=== PATIENT | female | born 1930 | race Caucasian/White ===

== ENCOUNTER 2017-01-05 14:37 | Inpatient (IN) | payer OTHER ==
[~2017-01-05] VITALS: Ht 152.4 cm; Wt 43.3 kg
--- NOTE | ~2017-01-05 | HC ---
[facility] [place] [address] CONSULTATION Name: CLINTON GUTIERREZ Room #: 359-P [facility] IN .R.#: [id number] Admission: 01/05/17 Attend Phys: Danielle Claros MD Discharge: Date of : 32 Report #: [id number] THIS REPORT FOR: //name// CC: Danielle Acosta PRIMARY PHYSICIAN: Edin Tapia MD REFERRAL PHYSICIAN: Dr. Claros. REASON FOR REFERRAL: Pneumonia. HISTORY OF PRESENT ILLNESS: The patient is an 86-year-old white female who presents to the emergency room with dyspnea and weakness. Chest x-ray revealed infiltrates. A pulmonary consultation was requested. The patient is followed longitudinally by Dr. Rod Acosta for COPD and past history of lung cancer. The patient was in her usual state of health until yesterday evening, she took a shower. She awoke early this morning with increasing dyspnea and weakness. Otherwise, no recent febrile illness, night sweats or chills, chest pain, or productive cough. PAST MEDICAL HISTORY: Notable for COPD, severity undefined; past history of lung cancer, undergoing right lower lobectomy along with left lower lobectomy; hypertension, dyslipidemia, gastroesophageal reflux disease, peripheral artery disease with multiple stents placement in the past. PAST SURGICAL HISTORY: As mentioned above including bilateral cataract surgery and total abdominal hysterectomy. ALLERGIES: To PENICILLIN, which causes hives. HOME MEDICATIONS: Include hydrochlorothiazide, Lasix, Plavix, Klor-con, nebulized DuoNeb, Ambien, vitamin D3, diltiazem, Advair, Prilosec, Fosamax, and multivitamins. FAMILY HISTORY: Noncontributory. SOCIAL HISTORY: She drinks wine socially. Otherwise, she has smoked in the past, quit more than 20 years ago after smoking 2 packs a day for 30 years. She is and lives with her . REVIEW OF SYSTEMS: As mentioned above, otherwise 10-point system is notable for [facility] [address] [place] [address] CONSULTATION Name: CLINTON GUTIERREZ Room #: 359-P [facility] IN [facility].#: [id number] Admission: 01/05/17 Attend Phys: Danielle Claros MD Discharge: Date of : 32 Report #: [id number] mild weight loss. PHYSICAL EXAMINATION: GENERAL: She is awake, alert, in mild distress with dyspnea. VITAL SIGNS: Temperature is 98 degrees Fahrenheit, pulse is 111, respiratory rate is 18, blood pressure 138/75 mmHg, and saturation is 97%. HEENT: Normocephalic, atraumatic. NECK: Supple without any lymphadenopathy or thyromegaly. CHEST: Breath sounds are fair, coarse in the bases. Few scattered crackles. No obvious wheezes. CARDIOVASCULAR: Normal S1, S2. There is no murmur or gallop. There is no JVD. There is no carotid bruit. Pulses are 2+/4+ bilaterally. BREASTS: Deferred. ABDOMEN: Soft, nontender, no organomegaly or masses felt. GENITOURINARY: Deferred. RECTAL: Deferred. EXTREMITIES: No cyanosis, clubbing, or edema. DERMATOLOGIC: Shows multiple ecchymoses involving both lower extremities along with upper extremities. MUSCULOSKELETAL: Notable for moderate cachexia and moderate muscle atrophy. LABORATORY DATA: Chest x-ray shows extensive right-sided infiltrates. CT chest shows extensive right lower lobe infiltrates along with extensive diffuse bullous changes involving all five lobes. There is a CT angiogram, which did not show evidence of pulmonary embolus. CT head was notable for atrophy, extensive bilateral chronic small vessel ischemic disease. Influenza A and B is negative. Electrolytes are normal except for sodium 133, potassium 3.7, CO2 of 25, BUN is 10. Liver function enzymes are grossly unremarkable. WBC 5500, hemoglobin is 13.5, platelets are moderately elevated at 690,000. Arterial blood gas revealed pH 7.53, pCO2 of 29, pO2 of 58 on room air. IMPRESSION: 1. Acute hypoxemic respiratory failure in this 86-year-old white female. Chest x-ray shows extensive infiltrates involving the right lung field. The patient has a history of lung cancer, undergone right lower lobe and left lower lobe lobectomy in the past. The patient appears to have pneumonia, suspect aspiration. 2. Chronic obstructive pulmonary disease, severity unknown with mild exacerbation. 3. Malnutrition with an albumin of 2.7 along with cachexia, it was felt to be severe protein-calorie malnutrition. 4. Hyponatremia, hypokalemia. 5. Remote history of lung cancer, status post right lower lobe and left lower lobe lobectomy. RECOMMENDATIONS: Agree with corticosteroids, bronchodilators, and broad [address] [address] CONSULTATION Name: CLINTON GUTIERREZ Room #: 359-P [facility] IN [facility].#: [id number] Admission: 01/05/17 Attend Phys: Danielle Claros MD Discharge: Date of : 32 Report #: [id number] spectrum antibiotics. If clinically the patient does not respond or worsens, we would suggest tailoring antibiotics to cover for aspiration pneumonia. DVT and GI prophylaxis will be addressed. We would also recommend nutritional evaluation along with supplementation given cachexia and malnutrition. Thank you for this consultation. <ELECTRONICALLY SIGNED> By: Jarrett Pritchett MD 01/07/17 1732 [id number] Jarrett Pritchett MD /nt
--- NOTE | ~2017-01-05 | HC ---
[facility] [place] [address] CONSULTATION Name: BRENDACLINTON Rebolledo Room #: 359-P [facility]..#: [id number] Admission: 01/05/17 Attend Phys: Danielle Claros MD Discharge: 01/14/17 Date of : 32 Report #: [id number] THIS REPORT FOR: //name// CC: [facility] J[facility]EN WILLIE Acosta DATE OF SERVICE: 01/08/2017 HISTORY OF PRESENT ILLNESS: The patient is an 86-year-old white female with a history of increased weakness, increased shortness of breath, had a fall walking to the bathroom at home. She was diagnosed with a community-acquired pneumonia and COPD exacerbation along with congestive heart failure. She failed her video swallow study. Gastroenterology is involved. She is thought to have aspiration pneumonia. There is consideration for a PEG tube. She is getting IV fluids for hydration at this point. We are seeing her in rehabilitation medicine consultation. She is on IV Solu-Medrol and IV antibiotics. PAST MEDICAL HISTORY: Lung CA with a right lobectomy, there is note of a left lobectomy, history of COPD, hypertension, GERD, peripheral vascular disease with stents to the abdomen and legs. MEDICATIONS: Please see the full medication listing. ALLERGIES: PENICILLIN. HABITS: Former tobacco user, quit greater than a year ago. History of occasional alcohol usage. SOCIAL HISTORY: House with , 3 steps in, did not utilize a gait aid premorbidly. She could dress herself and he took care of the IADLs. REVIEW OF SYSTEMS: Does complain of a mild headache. She has been started on the fluids. No focal extremity pain complaints. Some shortness of breath with increased activity. PHYSICAL EXAMINATION: GENERAL: An 86-year-old thin white female in no obvious distress. She is currently on nasal prong O2. VITAL SIGNS: Last recorded temperature 98.1, pulse 109, respirations 20, blood pressure 132/92. HEENT: Facies are symmetric. EXTREMITIES: Functional range of motion of the upper extremity; strength is grade 4-/5. DTRs are trace to 1. Lower extremities, no focal calf swelling. Functional range of motion with strength grade 3+ to 4-/5. DTRs are trace to 1. [address] [address] CONSULTATION Name: CLINTON GUTIERREZ Room #: 359-P [facility] IN ..#: [id number] Admission: 01/05/17 Attend Phys: Danielle Claros MD Discharge: 01/14/17 Date of : 32 Report #: [id number] She is contact guard with sit to stand. Toilet transfers were min assist. She did ambulate 100 feet min assist with a front-wheeled walker. ASSESSMENT: An 86-year-old white female with the following problem list: 1. Severe dysphagia with consideration for PEG tube. 2. Pneumonia, question aspiration. 3. Chronic obstructive pulmonary disease exacerbation. 4. Congestive heart failure. 5. Generalized weakness and debilitation with medical complexity. 6. Past history of lung carcinoma with prior lobectomy. PLAN: Gastroenterology is following. There is consideration for a PEG tube. At this point, we will follow along with you regarding rehab therapy needs. PT, OT and speech are all working with her. She certainly may be a candidate for a short acute in-hospital inpatient rehabilitation stay as she further medically stabilizes. We will be glad to follow along with you. <ELECTRONICALLY SIGNED> By: Garth Judd MD 01/17/17 1108 1437 [id number] Garth Judd MD /[facility]
--- NOTE | ~2017-01-05 | EKG ---
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: : 1930 Requested By: Uyen Rivera Order Number: [id number] MD: Malik Jalloh Measurements Intervals [place] Rate: 138 P: 87 [place]: 152 QRS: 19 QRSD: 83 T: 63 QT: 294 QTc: 446 Interpretive Statements Sinus tachycardia Abnormal inferior Q waves Compared to ECG 12/27/2015 07:07:52 Inferior Q waves now present Q waves now present Sinus rhythm no longer present Electronically Signed On 01-06-2017 7:36:31 SCARFING MACHINE OPERATOR by Malik Jalloh [email or web address] <ELECTRONICALLY SIGNED> By: Malik Jalloh MD 01/06/17 0736 1439 1439 Malik Jalloh MD /EPI
--- NOTE | ~2017-01-05 | S ---
[facility] [address] [place] [address] SURGICAL PATH RPT PROCEDURE Name: CLINTON GUTIERREZ Room #: 359-P ADM IN M.R.#: [id number] Admission: 01/05/17 Date of : 32 Discharge: Report #: [id number] Path Case #: [id number] PATHOLOGY REPORT COLLECTION DATE: 01/10/2017 RECEIVED DATE: 01/10/2017 SUBMITTING PHYS: Dr. Lionle Bustos OTHER PHYS: Dr. Rod Claros ADDENDUM REPORT (Order Date: 01/14/2017 09:57) ADDENDUM COMMENT: This addendum is issued to report a well-controlled GMS fungal special stain. 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 The originally rendered diagnosis remains unchanged. (IUV:mml; 01/14/2017) Professional services performed by [facility] at [facility] [address] [place] [address] Technical services performed by [facility] at [address] [place] [address], [address] [place] [address]. ELECTRONICALLY SIGNED BY: Lesley Borrero M.D. DATE/TIME:01/14/2017 13:03 SPECIMEN(S) RECEIVED: A.Bx of antrum B.Bx of esophageal * * * * * * * * * * * * FINAL DIAGNOSIS: A. Gastric mucosa, antrum, endoscopic biopsy: - Mild reactive gastropathy. - Negative for intestinal metaplasia or atrophy. - Negative for Helicobacter pylori. B. Squamous mucosa, esophageal stricture, endoscopic biopsy: - Fragments of fibrinopurulent material as well as hyphal elements within squamous epithelium, compatible with fungal esophagitis. - Negative for dysplasia or malignancy. (IUV:saadia; 01/13/2017) COMMENT: [facility] [address] [place] [address] SURGICAL PATH RPT PROCEDURE Name: CLINTON GUTIERREZ Room #: 359-P [facility] IN .R.#: [id number] Admission: 01/05/17 Date of : 32 Discharge: Report #: [id number] Path Case #: [id number] Well-controlled Helicobacter pylori immunohistochemical stain performed on Block A1 - Negative. A GMS special stain for fungal elements is ordered on Block B, and the results of this will be reported in an addendum to follow. (IUV:saadia; 01/13/2017) PATHOLOGIST: Lesley Borrero M.D. REPORT ELECTRONICALLY SIGNED BY: Lesley Borrero M.D. DATE/TIME: 01/13/2017 14:43 * * * * * * * * * * * * GROSS PATHOLOGY: A. Received in formalin labeled "SEFERINO Nuñez of antrum," is a segment of martinez soft tissue measuring 0.4 cm in maximum dimension. The specimen is submitted entirely in cassette A1. B. Received in formalin labeled "SEFERINO Nuñez of esophageal stricture," are 5 segments of martinez soft tissue measuring 2.1 x 1.0 x 0.2 cm in aggregate dimensions and ranging from 0.3 to 0.5 cm in maximum dimension. The specimen is submitted entirely in cassette B1. (TSD; 01/10/2017) CLINICAL HISTORY: None provided INITIAL CPT CODE(S): A; 99038, 31549 B; 42110, 91095 Professional services performed by [facility] at [facility] [address], [place] [address] Technical services performed by [facility] at [address] [place] [address], [address], [place] [address]. [facility] [address] [place] [address] PHONE: [phone] DIRECTOR: Eliu Scruggs M.D. * * * END OF REPORT * * *
[~2017-01-05 14:37] MED LIST: ACCUNEB SO1.25 MG/1 INH; ADULT LOW DOSE81 MG PO; ADVAIR 250-501 EACH IH; ALBUTEROL INH IH; ALBUTEROL2.5 MG/31 INH; AMBIEN 10 MG TA10 MG PO; AMBIEN 5 MG TABL5 M1 PO; BETAMETHASONE D45 GM TP; CARDIZEM CD240 MG PO; FISHOIL PO; FOSAMAX 70 MG T70 M1 PO; FOSAMAX 70 MG T70 MG PO; GLUCOPHAGE XR500 MG PO; HYDROCHLOROTHIA25 M2 PO; HYDROXYZINE HCL25 M1 PO; IMDUR 60 MG TAB60 M1 PO; KLOR-CON 1010 MEQ PO; LASIX 40 MG TAB40 M2 PO; LIPITOR40 MG PO; LIPITOR80 MG; MAXAIR AUTOHALE14 G1 IH; MEDROLDOSEPACK PO; NORCO 5-325 TA1 EACH PO; PLAVIX 75 MG TA75 M1 PO; PRAVACHOL40 MG PO; PRAVACHOL80 MG PO; PREDNISONE50 MG PO; PRILOSEC 20 MG20 MG PO; PROAIR HFA8.5 GM IH; TUMS PO; UNICOMPLEX M TA1 TA1 PO; VENTOLIN HFA 1818 GM INH
[2017-01-05 14:38] VITALS: BP 150/47
[2017-01-05 15:05] LABS: ABSOLUTE NEUTROPHILS 7.8 thou/uL (1.4-8.2); BASOPHILS 0.8 % (0.0-2.0); EOSINOPHILS 0.3 % (0.0-3.0); HEMATOCRIT 37.2 % (37.0-47.0); HEMOGLOBIN 12.9 gm/dL (12.0-15.0); LYMPHOCYTES 12.4 % (24.0-44.0); MCH 31.3 pg (26.0-34.0); MCHC 34.6 g/dL (28.0-37.0); MCV 90.3 fL (80.0-100.0); MONOCYTES 9.7 % (1.0-8.0); PLATELET COUNT 590 thou/uL (150-400); POLYS 76.8 % (36.0-66.0); RBC 4.12 mil/uL (4.20-5.00); RDW 12.7 % (10.5-14.5); WBC 10.1 thou/uL (4.0-11.0)
[2017-01-05 15:14] LABS: ABG SAMPLE TYPE ARTERIAL; BE(vivo) 2.5 mmol/L (-2 to +3); HCO3 24.2 mmol/L (22.0-26.0); LACTATE 1.98 mmol/L (0.5-2.0); O2(CT) 17.2 mL/dL (15.0-23.0); O2Hb 91.5 % (92.0-98.0); PCO2 29.4 mmHg (35.0-45.0); PO2 58.6 mmHg (80.0-100.0); pH 7.534 (7.360-7.450); sO2 93.5 % (92.0-98.0); tCO2 25.1 mmol/L (24.0-30.0)
[2017-01-05 15:14] LABS: ANION GAP 12 mmol/L (7-16); BUN 9 mg/dL (7-18); CALCIUM 10.3 mg/dL (8.5-10.1); CHLORIDE 93 mmol/L (98-107); CO2 28 mmol/L (21-32); CREATININE 0.7 mg/dL (0.6-1.0); GLUCOSE 135 mg/dL (74-106); POTASSIUM 3.8 mmol/L (3.5-5.1); SODIUM 133 mmol/L (136-145)
[2017-01-05 15:15] LABS: MANUAL DIFF NO
[2017-01-05 15:15] LABS: ABG COMMENT NO COMPLICATIONS.; STICK SITE R.RADIAL
[2017-01-05 15:17] LABS: INR 1.1; PROTIME 10.8 Seconds (9.3-11.4)
[2017-01-05 15:22] LABS: ALBUMIN 2.7 g/dL (3.4-5.0); ALKALINE PHOSPHATASE 126 U/L (46-116); SGOT 22 U/L (15-37); SGPT 16 U/L (30-65); TOTAL BILIRUBIN 0.3 mg/dL (<0.1-1.0); TOTAL PROTEIN 7.9 g/dL (6.4-8.2); TROPONIN-I < 0.04 ng/mL (<0.06)
[2017-01-05] MEDS ORDERED: ALBUTEROL2.5 MG/31 INH (15:52)
[2017-01-05] MEDS ORDERED: AMBIEN5 MG PO (15:54)
[2017-01-05] MEDS ORDERED: VIACTIV SOFT C1 EACH PO (15:54)
[2017-01-05] MEDS ORDERED: DILTIAZEM 24HR360 M1 PO (15:55)
[2017-01-05 16:32] VITALS: BP 138/65
[2017-01-05 19:13] VITALS: BP 113/59
[2017-01-05 22:18] LABS: URINE BILIRUBIN NEGATIVE (Negative); URINE BLOOD NEGATIVE (Negative); URINE COLOR YELLOW; URINE GLUCOSE-RANDOM* NEGATIVE (Negative); URINE KETONES 1+ (Negative); URINE NITRITE NEGATIVE (Negative); URINE PROTEIN (DIPSTICK) NEGATIVE (Negative); URINE SPECIFIC GRAVITY <= 1.005 (1.003-1.035); URINE UROBILINOGEN 0.2 E.U./dl (0.2-1.0)
[2017-01-06 03:31] VITALS: BP 135/84
[2017-01-06 06:23] LABS: ABSOLUTE NEUTROPHILS 4.4 thou/uL (1.4-8.2); BASOPHILS 0.2 % (0.0-2.0); HEMATOCRIT 40.4 % (37.0-47.0); HEMOGLOBIN 13.5 gm/dL (12.0-15.0); LYMPHOCYTES 16.4 % (24.0-44.0); MCH 30.4 pg (26.0-34.0); MCHC 33.3 g/dL (28.0-37.0); MCV 91.2 fL (80.0-100.0); MONOCYTES 3.1 % (1.0-8.0); POLYS 80.3 % (36.0-66.0); RBC 4.43 mil/uL (4.20-5.00); RDW 12.8 % (10.5-14.5); WBC 5.5 thou/uL (4.0-11.0)
[2017-01-06 06:24] LABS: MANUAL DIFF NO; PLATELET COUNT 689 thou/uL (150-400)
[2017-01-06 06:34] LABS: CALCIUM 10.3 mg/dL (8.5-10.1); CREATININE 0.7 mg/dL (0.6-1.0); POTASSIUM 3.7 mmol/L (3.5-5.1)
[2017-01-06 07:28] VITALS: BP 119/62
[2017-01-06 11:33] VITALS: BP 138/75
[2017-01-06 15:01] VITALS: BP 104/63
[2017-01-06 20:00] VITALS: BP 103/72
[2017-01-07 04:00] VITALS: BP 125/66
[2017-01-07 05:54] LABS: HEMATOCRIT 35.8 % (37.0-47.0); HEMOGLOBIN 11.8 gm/dL (12.0-15.0); MCH 29.8 pg (26.0-34.0); MCV 90.2 fL (80.0-100.0); PLATELET COUNT 639 thou/uL (150-400); RBC 3.97 mil/uL (4.20-5.00); RDW 12.8 % (10.5-14.5); WBC 14.1 thou/uL (4.0-11.0)
[2017-01-07 06:00] LABS: MANUAL DIFF YES
[2017-01-07 06:09] LABS: CALCIUM 10.5 mg/dL (8.5-10.1); CREATININE 0.7 mg/dL (0.6-1.0)
[2017-01-07 06:18] LABS: POTASSIUM 2.9 mmol/L (3.5-5.1)
[2017-01-07 08:11] LABS: ABSOLUTE NEUTROPHILS 12.3 thou/uL (1.4-8.2); LARGE PLATELETS FEW; TOTAL CELL COUNT 100
[2017-01-07 08:21] VITALS: BP 116/91
[2017-01-07 11:09] VITALS: BP 116/57
[2017-01-07 15:29] VITALS: BP 100/41
[2017-01-07 19:30] VITALS: BP 105/48
[2017-01-08 03:15] VITALS: BP 117/65
[2017-01-08 05:44] LABS: HEMATOCRIT 33.9 % (37.0-47.0); HEMOGLOBIN 11.1 gm/dL (12.0-15.0); MCH 29.7 pg (26.0-34.0); MCHC 32.8 g/dL (28.0-37.0); MCV 90.4 fL (80.0-100.0); RBC 3.74 mil/uL (4.20-5.00); RDW 12.8 % (10.5-14.5)
[2017-01-08 05:46] LABS: PLATELET COUNT 559 thou/uL (150-400)
[2017-01-08 05:48] LABS: CALCIUM 9.9 mg/dL (8.5-10.1); CREATININE 0.5 mg/dL (0.6-1.0); MAGNESIUM 2.2 mg/dL (1.8-2.4); POTASSIUM 3.8 mmol/L (3.5-5.1)
[2017-01-08 05:58] LABS: MANUAL DIFF YES
[2017-01-08 08:02] LABS: ABSOLUTE NEUTROPHILS 12.6 thou/uL (1.4-8.2); ANISOCYTOSIS SLIGHT; TOTAL CELL COUNT 100
[2017-01-08 08:12] VITALS: BP 131/62
[2017-01-08 11:55] VITALS: BP 132/92
[2017-01-08 20:20] VITALS: BP 124/67
[2017-01-09 04:30] VITALS: BP 155/77
[2017-01-09 08:10] VITALS: BP 149/84
[2017-01-09 11:22] VITALS: BP 144/74
[2017-01-09 15:18] VITALS: BP 154/81
[2017-01-09 20:00] VITALS: BP 144/84
[2017-01-10 04:00] VITALS: BP 154/87
[2017-01-10 08:51] VITALS: BP 145/85
[2017-01-10 13:30] VITALS: BP 140/92
[2017-01-10 18:12] VITALS: BP 135/89
[2017-01-10 19:20] VITALS: BP 134/59
[2017-01-11 03:43] LABS: HEMATOCRIT 39.6 % (37.0-47.0); HEMOGLOBIN 12.9 gm/dL (12.0-15.0); MCH 29.4 pg (26.0-34.0); MCHC 32.6 g/dL (28.0-37.0); MCV 90.4 fL (80.0-100.0); RBC 4.38 mil/uL (4.20-5.00); RDW 13.1 % (10.5-14.5); WBC 12.1 thou/uL (4.0-11.0)
[2017-01-11 03:51] LABS: CALCIUM 9.7 mg/dL (8.5-10.1); CREATININE 0.6 mg/dL (0.6-1.0); POTASSIUM 3.3 mmol/L (3.5-5.1)
[2017-01-11 04:21] VITALS: BP 137/76
[2017-01-11 07:14] VITALS: BP 145/76
[2017-01-11 11:14] VITALS: BP 106/55
[2017-01-11 15:17] VITALS: BP 109/49
[2017-01-11 19:27] VITALS: BP 122/68
[2017-01-12 03:15] VITALS: BP 144/75
[2017-01-12 03:55] LABS: HEMATOCRIT 34.6 % (37.0-47.0); HEMOGLOBIN 11.4 gm/dL (12.0-15.0); MCH 29.6 pg (26.0-34.0); MCHC 32.8 g/dL (28.0-37.0); MCV 90.1 fL (80.0-100.0); RBC 3.84 mil/uL (4.20-5.00); RDW 12.9 % (10.5-14.5); WBC 11.3 thou/uL (4.0-11.0)
[2017-01-12 04:09] LABS: CALCIUM 10.1 mg/dL (8.5-10.1); CREATININE 0.5 mg/dL (0.6-1.0); POTASSIUM 3.3 mmol/L (3.5-5.1)
[2017-01-12 07:35] VITALS: BP 143/69
[2017-01-12 12:47] VITALS: BP 108/49
[2017-01-12 16:05] VITALS: BP 102/45
[2017-01-12 19:15] VITALS: BP 98/47
[2017-01-13 03:44] VITALS: BP 143/79
[2017-01-13 03:56] VITALS: BP 143/79
[2017-01-13 05:44] LABS: HEMATOCRIT 37.7 % (37.0-47.0); HEMOGLOBIN 12.3 gm/dL (12.0-15.0); MCH 29.6 pg (26.0-34.0); MCHC 32.6 g/dL (28.0-37.0); RBC 4.14 mil/uL (4.20-5.00); RDW 12.7 % (10.5-14.5); WBC 13.7 thou/uL (4.0-11.0)
[2017-01-13 05:59] LABS: CALCIUM 10.4 mg/dL (8.5-10.1); CREATININE 0.6 mg/dL (0.6-1.0); POTASSIUM 3.9 mmol/L (3.5-5.1)
[2017-01-13 07:05] VITALS: BP 147/82
[2017-01-13 11:38] VITALS: BP 120/64
[2017-01-13 15:41] VITALS: BP 110/57
[2017-01-13 19:24] VITALS: BP 121/78
[2017-01-14 03:55] VITALS: BP 127/74
[2017-01-14 09:27] VITALS: BP 133/75
[2017-01-14 12:14] VITALS: BP 126/69
[2017-01-14] MEDS ORDERED: CARDIZEM CD 30300 M1 PO (16:06)
[2017-01-14] MEDS ORDERED: HUMALOG100 UNIT/1 SUBQ (16:06)
[2017-01-14] MEDS ORDERED: PROTONIX40 M1 PO (16:06)
[2017-01-14] MEDS ORDERED: PREDNISONE 10 M10 MG PO (16:06)
[2017-01-14] MEDS ORDERED: NYSTATIN100000 UNI SW&SWALLOW (16:06)
[2017-01-14] MEDS ORDERED: ALBUTEROL2.5 MG/31 INH (16:06)
[2017-01-14] MEDS ORDERED: ENOXAPARIN30 MG/0.1 SUBQ (16:06)
[2017-01-14 16:20] VITALS: BP 111/66
== END 2017-01-14 18:23 | DRG 871 ==
LOC: ER 14:37 → EROBS 15:35 → 3W 15:35
PROVIDERS: Hospitalist; Internal Medicine Endocrinology, Diabetes & Metabolism; Nurse Practitioner; Physician Assistant
PROC: 0DB68ZX Excision of Stomach, Via Natural or Artificial Opening Endoscopic, Diagnostic (ICD-10-PCS; principal; 2017-01-10)
PROC: 0DB58ZX Excision of Esophagus, Via Natural or Artificial Opening Endoscopic, Diagnostic (ICD-10-PCS; principal; 2017-01-10)
PROC: 0D758ZZ Dilation of Esophagus, Via Natural or Artificial Opening Endoscopic (ICD-10-PCS; principal; 2017-01-10)
DX: A41.9 Sepsis, unspecified organism (principal); E43 Unspecified severe protein-calorie malnutrition; J96.21 Acute and chronic respiratory failure with hypoxia; J69.0 Pneumonitis due to inhalation of food and vomit; J44.1 Chronic obstructive pulmonary disease with (acute) exacerbation; E87.1 Hypo-osmolality and hyponatremia; B37.81 Candidal esophagitis; Z68.1 Body mass index [BMI] 19.9 or less, adult; I50.9 Heart failure, unspecified; I11.0 Hypertensive heart disease with heart failure; K29.70 Gastritis, unspecified, without bleeding; K20.9 Esophagitis, unspecified; K22.2 Esophageal obstruction; R13.12 Dysphagia, oropharyngeal phase; Z51.5 Encounter for palliative care; K44.9 Diaphragmatic hernia without obstruction or gangrene; G47.33 Obstructive sleep apnea (adult) (pediatric); I25.10 Atherosclerotic heart disease of native coronary artery without angina pectoris; F03.90 Unspecified dementia, unspecified severity, without behavioral disturbance, psychotic disturbance, mood disturbance, and anxiety; E87.6 Hypokalemia; R00.0 Tachycardia, unspecified; I73.9 Peripheral vascular disease, unspecified; E78.5 Hyperlipidemia, unspecified; K21.9 Gastro-esophageal reflux disease without esophagitis; Z95.5 Presence of coronary angioplasty implant and graft; Z85.118 Personal history of other malignant neoplasm of bronchus and lung; Z98.42 Cataract extraction status, left eye; Z98.41 Cataract extraction status, right eye; Z88.0 Allergy status to penicillin; Z90.710 Acquired absence of both cervix and uterus; Z87.891 Personal history of nicotine dependence; Z79.52 Long term (current) use of systemic steroids; Z79.899 Other long term (current) drug therapy; Z90.3 Acquired absence of stomach [part of]; Z85.72 Personal history of non-Hodgkin lymphomas
CPT/HCPCS: 10779; 62110; 62900